=== PATIENT | female | born 1965 | race Caucasian/White ===

== ENCOUNTER 2024-11-23 18:47 | Emergency (ER) | payer OTHER ==
[~2024-11-23] VITALS: Ht 157.5 cm; Wt 102.9 kg
[2024-11-23] MEDS ORDERED: SINGULAIR10 MG PO (19:04)
[2024-11-23] MEDS ORDERED: ondansetron HCL 4 MG/2 ML VIAL IV PRN (19:15)
[2024-11-23] MEDS ORDERED: KETOROLAC TROMETHAMINE 15 MG/ML VIAL IV ONE (19:15)
[2024-11-23 19:23] LABS: BASOPHILS 0.4 % (0-2); HEMATOCRIT 43.2 % (35.0-50.0); LYMPHOCYTES 18.5 % (24-44); MCHC 34.7 g/dl (30-36); MCV 86.4 fl (81-99); MONOCYTES 7.3 % (0-12); NEUTROPHILS 71.8 % (39-80); PLATELET COUNT 306 K/uL (140-440); RDW 13.5 (10.5-15.0)
[2024-11-23] MEDS ORDERED: TAMSULOSIN HCL 0.4 MG CAP PO ONE (19:30)
[2024-11-23] MEDS ORDERED: KETOROLAC TROMETHAMINE 30 MG/ML VIAL IV ONE (19:30)
[2024-11-23] MEDS ORDERED: LACTATED RINGER'S 1,000 ML IV ONE (19:30)
[2024-11-23 19:42] LABS: ALBUMIN 3.7 g/dL (3.4-5.0); ALBUMIN/GLOBULIN RATIO 0.97 (1.1-2.4); BILIRUBIN, TOTAL 0.7 mg/dL (0.2-1.0); BUN/CREATININE RATIO 14.1 (6.0-28.6); CALCIUM 8.8 mg/dL (8.5-10.1); CREATININE, SERUM 0.78 mg/dL (0.55-1.02); PROTEIN, TOTAL 7.5 g/dL (6.4-8.2)
[2024-11-23 22:25] LABS: BILIRUBIN, URINE NEGATIVE (negative); BLOOD/HGB, URINE TRACE-L (Negative); KETONE, URINE NEGATIVE (Negative); LEUK ESTERASE, URINE NEGATIVE (negative); NITRITE, URINE NEGATIVE (negative)
[2024-11-23 22:32] LABS: BACTERIA, URINE RARE /hpf (negative); CASTS, URINE NONE SEEN \\lpf; COLLECTION TYPE, URINE CLEAN CATCH; CRYSTALS, URINE NONE SEEN (0-1+); EPITHELIAL CELLS, URINE SQUAMOUS 2+ /lpf (0-1+); REFLEX CULTURE, URINE No (No); WHITE BLOOD CELLS, URINE 0-1 /HPF (0-5)
[2024-11-23] MEDS ORDERED: HYDROCODONE BIT/ACETAMINOPHEN 5/325 MG 1 TAB HOME.PACK PO ONE (23:00)
[2024-11-23] MEDS ORDERED: LIDOCAINE HCL 4% 1 EACH PATCH TD ONE (23:00)
[2024-11-23] MEDS ORDERED: LIDODERM1 EACH TOP (23:17)
[2024-11-23 23:20] VITALS: BP 137/77
== END 2024-11-23 23:21 | disposition home or self-care (01) ==
LOC: ED 18:47
PROVIDERS: Internal Medicine
DX: K57.30 Diverticulosis of large intestine without perforation or abscess without bleeding (principal); R10.31 Right lower quadrant pain; J45.909 Unspecified asthma, uncomplicated; G47.30 Sleep apnea, unspecified; E11.9 Type 2 diabetes mellitus without complications; Z88.0 Allergy status to penicillin
CPT/HCPCS: 36415; 74176; 80053; 81001; 84703; 85025; 96374; 96375; 99284-25; A9270; J1885; J2405; J7121